=== PATIENT | male | born 1940 | race Caucasian/White ===

== ENCOUNTER → 2017-09-18 | Outpatient (CLI) | payer OTHER ==
[~2017-09-18] MED LIST: ACET-704 PO; ASPI81TA50 PO; ATOR10TA PO; CYAN10005 PO; DIFL500T PO; FOLI1TAB16 PO; LEVO125T5 PO; MULT1TAB52 PO; PANT40TA3 PO; SULF500T7 PO; TAMS0.4C97 PO; TRAZ-90 PO; WARF-78 PO; [UNRECOGNIZED DRUG - CODE] PO
== END | disposition home or self-care (01) ==
LOC: LAB 08:34
PROVIDERS: ATTEND Internal Medicine Gastroenterology
DX: Z51.81 Encounter for therapeutic drug level monitoring (principal); Z79.01 Long term (current) use of anticoagulants
CPT/HCPCS: 36415; 85610

== ENCOUNTER → 2017-09-19 | Day surgery (SDC) | payer MEDICARE, OTHER ==
[~2017-09-19] MED LIST changes: +IV RINGERS SOLUTION,LACTATED 1,000 ML IV SCH; +LIDOCAINE 1% PF 2 ML VIAL. ID PRN; +PROPOFOL 50 ML IV ONE; +PROPOFOL IV ONE
[2017-09-19 14:24] VITALS: BP 144/74
== END ==
LOC: SURG 10:44
PROVIDERS: ATTEND Internal Medicine Gastroenterology
DX: Z12.11 Encounter for screening for malignant neoplasm of colon (principal); K22.2 Esophageal obstruction; K57.30 Diverticulosis of large intestine without perforation or abscess without bleeding; K64.8 Other hemorrhoids; E03.9 Hypothyroidism, unspecified; E78.5 Hyperlipidemia, unspecified; Z85.828 Personal history of other malignant neoplasm of skin; Z87.39 Personal history of other diseases of the musculoskeletal system and connective tissue
CPT/HCPCS: 43239; G0105; J2704; J7120

== ENCOUNTER → 2018-05-27 | Outpatient (CLI) | payer OTHER ==
[2017-09-19 14:24] VITALS: BP 144/74
[~2018-05-27] MED LIST changes: -IV RINGERS SOLUTION,LACTATED 1,000 ML IV SCH; -LIDOCAINE 1% PF 2 ML VIAL. ID PRN; -PROPOFOL 50 ML IV ONE; -PROPOFOL IV ONE; +TRAZ-86 PO; -TRAZ-90 PO
--- NOTE | 2018-05-27 18:47 | RAD ---
Indication: Difficulty urinating. TECHNIQUE: Ultrasound renal and bladder COMPARISON: None FINDINGS: The right kidney measures 10.6 x 5.6 x 4.5 cm without hydronephrosis. 1.5 x 1.4 x 1.1 cm simple cyst in the right kidney. Another 1.3 x 1.4 x 1.4 similar simple cyst in the right kidney. Left kidney measures 10.7 x 6.0 x 4.5 cm without hydronephrosis. Bilateral ureteral jets are seen. Prevoid bladder volume of 278 cc. Post void bladder volume of 179 cc. IMPRESSION: 1. No hydronephrosis. 2. Significant residual post void bladder volume. Electronically signed by: Wyatt Quinones DO (05/27/2018 6:42 PM) [facility]
--- NOTE | 2018-05-27 21:54 | RAD ---
Bilateral lower extremity arterial duplex Doppler examination with spectral analysis HISTORY: Bottom of feet numb Sonographic examination of the lower extremities was performed and multiple static images were obtained. In addition color Doppler was applied as well as arterial waveform spectral analysis. FINDINGS: There is callus patients with low csaper of the arteries throughout. There is biphasic waveforms throughout the lower extremities. There is no abnormally high velocities. IMPRESSION: Significant atherosclerotic disease with calcification of the casper of the arteries and biphasic waveform. No focal stenosis. Electronically signed by: Blake Becker III, MD (05/27/2018 9:49 PM) [facility]
== END | disposition home or self-care (01) ==
LOC: US 14:11
PROVIDERS: ATTEND Family Medicine
DX: I70.203 Unspecified atherosclerosis of native arteries of extremities, bilateral legs (principal); N40.1 Benign prostatic hyperplasia with lower urinary tract symptoms; N28.1 Cyst of kidney, acquired; E03.9 Hypothyroidism, unspecified; E78.5 Hyperlipidemia, unspecified; M19.90 Unspecified osteoarthritis, unspecified site; Z85.820 Personal history of malignant melanoma of skin; Z80.3 Family history of malignant neoplasm of breast; Z80.42 Family history of malignant neoplasm of prostate; Z83.3 Family history of diabetes mellitus
CPT/HCPCS: 76770; 93925

== ENCOUNTER 2019-12-08 14:05 | Observation (INO) | payer MEDICARE, OTHER ==
[~2019-12-08] VITALS: Ht 175.3 cm; Wt 68.4 kg
[~2019-12-08 14:05] MED LIST changes: +CYAN-25 PO; -CYAN10005 PO; +MULT-445 PO; -MULT1TAB52 PO; +TRAZ-125 PO; -TRAZ-86 PO; -WARF-78 PO; +WARF5TAB2 PO
--- NOTE | 2019-12-08 14:25 | PHYS DOC ---
Past History Past Medical History: DVT, High Cholesterol, Hypothyroid Past Surgical History: Other Past Surgical History Hip replacement multiple knee surgeries Smoking: Non-smoker Alcohol Use: Rarely Drug Use: None General Adult EDM: Chief Complaint: MECHANICAL FALL HPI: HPI: Patient is a 79 year old male who presents for evaluation from Dr. Ann's office. Patient had a mechanical fall off a 3 foot stepladder. Patient fell forward and landed on his face injuring his nose. Patient is on warfarin. He states he was dazed but did not lose consciousness. Patient had some bleeding from his nose prior to arrival but that has stopped. Furthermore he has a scrap e to his left lower leg. Patient is ambulatory without difficulty. Patient is on warfarin due to prior history of DVT. Patient is lucid awake and appropriate with no no nausea or vomiting. Tetanus shot is less than 5 years old. Both wrists are tender to palpation as well Review of Systems: Review of Systems: Constitutional: Denies fever or chills Eyes: Denies change in visual acuity HENT: Denies nasal congestion or sore throat Respiratory: Denies cough or shortness of breath Cardiovascular: Denies chest pain or edema GI: Denies abdominal pain, nausea, vomiting, bloody stools or diarrhea : Denies dysuria Musculoskeletal: Denies back pain or joint pain Integument: Denies rash, abrasion left lower leg, face and nose Neurologic: mild headache,no focal weakness or sensory changes Endocrine: Denies polyuria or polydipsia Lymphatic: Denies swollen glands Psychiatric: Denies depression or anxiety Heart Score: Risk Factors: Risk Factors: DM, Current or recent (<one month) smoker, HTN, HLP, family history of CAD, obesity. Risk Scores: Score 0 - 3: 2.5% MACE over next 6 weeks - Discharge Home Score 4 - 6: 20.3% MACE over next 6 weeks - Admit for Clinical Observation Score 7 - 10: 72.7% MACE over next 6 weeks - Early Invasive Strategies Allergies: Allergies: Allergies Coded Allergies Type Severity Reaction Last Updated Verified No Known Drug Allergies 09/19/17 No Physical Exam: PE: Constitutional: Well developed, well nourished, mild acute distress, non-toxic appearance. [] HENT: Normocephalic, large abrasion to nose, small abrasion to forehead, bilateral external ears normal, no hemotympanum, no nasal septal hematoma oropharynx moist, no oral exudates, nose normal. [] Eyes: PERRL, EOMI, conjunctiva normal, no discharge. [] Neck: Normal range of motion, no tenderness, supple, no stridor. [] Cardiovascular:Heart rate regular rhythm, no murmur [] Lungs & Thorax: Bilateral breath sounds clear to auscultation [] Abdomen: Bowel sounds normal, soft, no tenderness, no masses. [] Skin: Warm, dry, no erythema, no rash. [] Back: No tenderness. [] Extremities: Mild tenderness left lower leg with abrasion present, no cyanosis, no clubbing, ROM intact, no edema, both wrists tender to palpation [] Neurologic: Alert and oriented X 3, normal motor function, normal sensory function, no focal deficits noted. [] Psychologic: Affect normal, judgement normal, mood normal. [] Current Patient Data: Labs: Laboratory Tests Test 12/08/19 14:52 White Blood Count 6.4 x10^3/uL Red Blood Count 3.82 x10^6/uL Hemoglobin 10.8 g/dL Hematocrit 33.6 % Mean Corpuscular Volume 88 fL Mean Corpuscular Hemoglobin 28 pg Mean Corpuscular Hemoglobin Concent 32 g/dL Red Cell Distribution Width 16.6 % Platelet Count 167 x10^3/uL Neutrophils (%) (Auto) 81 % Lymphocytes (%) (Auto) 12 % Monocytes (%) (Auto) 6 % Eosinophils (%) (Auto) 1 % Basophils (%) (Auto) 0 % Neutrophils # (Auto) 5.2 x10^3uL Lymphocytes # (Auto) 0.8 x10^3/uL Monocytes # (Auto) 0.4 x10^3/uL Eosinophils # (Auto) 0.0 x10^3/uL Basophils # (Auto) 0.0 x10^3/uL Prothrombin Time 66.8 SEC Prothromb Time International Ratio 6.9 Activated Partial Thromboplast Time 48 SEC Sodium Level 137 mmol/L Potassium Level 3.9 mmol/L Chloride Level 103 mmol/L Carbon Dioxide Level 24 mmol/L Anion Gap 10 Blood Urea Nitrogen 21 mg/dL Creatinine 1.0 mg/dL Estimated GFR (Cockcroft-Gault) 72.1 Glucose Level 96 mg/dL Calcium Level 9.1 mg/dL EKG: EKG: [] Radiology/Procedures: Radiology/Procedures: [address] [address] IMAGING REPORT Signed PATIENT: MEY COTTO FACCOUNT: [id number] : 1940 LOCATION: ER AGE: 79 SEX: M EXAM STATUS: REG ER ORD. PHYSICIAN: YULISSA VALDES DO REASON: fall, head injury PROCEDURE: CT HEAD AND MAXILLOFACIAL WO CT HEAD AND MAXILLOFACIAL WO, CT CERVICAL SPINE WO CONTRAST History:Fall, head injury Technique: Noncontrast CT imaging was performed of the head, maxillofacial region, and cervical spine. Multiplanar reconstruction images are submitted. Exposure: One or more of the following individualized dose reduction techniques were utilized for this examination: 1. Automated exposure control 2. Adjustment of the mA and/or kV according to patient size 3. Use of iterative reconstruction technique. Head CT Comparison: None available Findings: There is some motion degradation. No convincing acute hyperdense intracranial hemorrhage is identified. There is mild generalized supratentorial atrophy, ventricular size proportionate to the sulcal spaces. Is some frontal region scalp soft tissue swelling greater on the right. No acute calvarial abnormality is identified. Impression: 1. No acute intracranial abnormality is identified. Cervical spine CT Comparison: None Findings: There is diffuse bone demineralization. Cervical vertebral body stature is overall maintained. There is grade 1 anterior spondylolisthesis C3-4 and C7-T1. There is advanced degenerative disc disease C5-6 and C6-7 and to a somewhat lesser degree at C3-4 and C4-5. There is some calcification of the transverse ligament of C1. Atlantoaxial distance is within normal limits. There is likely central canal stenosis on the order of about 8 mm C3-4 to C6-7. There is multilevel facet and uncovertebral degenerative change. There is moderate to severe narrowing of the left C3-4 neural foramen, severe narrowing on the left at C4-5 and bilaterally at C5-6, moderate narrowing on the right at C4-5 and to lesser degree on the right at C6-7. There is atherosclerotic calcification of the carotid arteries in the neck bilaterally. Impression: 1. No acute cervical spine fracture is identified. 2. There is multilevel cervical degenerative disc disease and spondylosis. There is multilevel cervical spinal stenosis greatest C4-5 to C6-7. There is multilevel cervical neural foramina compromise due to facet and uncovertebral degenerative change. 3. There is bone demineralization. Maxillofacial CT FINDINGS: There are no air-fluid levels of the paranasal sinuses. There is mild left maxillary sinus mucosal thickening and probable very small mucous retention cyst. There are minimally displaced nasal bone fractures bilaterally. There is deviation of the nasal septum to the left. IMPRESSION: 1.There are bilateral nasal bone fractures. Electronically signed by: John Roman MD (12/08/2019 3:11 PM) [id number] DICTATED AND SIGNED BY: JOHN ROMAN MD DATE: 12/08/191510 CC: BRANDY ANN MD; YULISSA VALDES DO ~ [] Impressions: [place] [address] IMAGING REPORT Signed PATIENT: MEY COTTO FACCOUNT: [id number] : 1940 LOCATION: ER AGE: 79 SEX: M EXAM STATUS: REG ER ORD. PHYSICIAN: YULISSA VALDES DO REASON: pain, fall, injury PROCEDURE: ANKLE BILAT 3V ANKLE BILAT 3V History: Reason: pain, fall, injury / Spl. Instructions: / History: Technique: 3 views bilateral ankles. Comparison: None. Findings: Right ankle: Advanced right ankle degenerative changes with remodeling of the talus and distal tibia. Well-corticated ossification inferior to the medial malleolus, likely related to prior trauma or degenerative changes. Extensive vascular calcifications. No definite fracture. Plantar calcaneal spur. Left ankle: Normal alignment. Symmetric ankle mortise. No fracture. Mild ankle degenerative changes. Extensive vascular calcination's. Plantar calcaneal spur. Impression: 1. No acute osseous abnormality. 2. Advanced right ankle DJD. Electronically signed by: James Simon DO (12/08/2019 3:16 PM) [id number] DICTATED AND SIGNED BY: JAMES SIMON DO DATE: 12/08/191515 CC: BRANDY ANN MD; YULISSA VALDES DO ~ [address] [address] IMAGING REPORT Signed PATIENT: MEY COTTO FACCOUNT: [id number] : 1940 LOCATION: ER AGE: 79 SEX: M EXAM STATUS: REG ER ORD. PHYSICIAN: YULISSA VALDES DO REASON: fall, swelling PROCEDURE: WRIST BILAT 3V WRIST BILAT 3V History: Reason: fall, swelling / Spl. Instructions: / History: Technique: 3 views bilateral wrists. Comparison: None. Findings: Left wrist: Advanced left distal radial carpal degenerative changes with remodeling of the proximal carpal row and distal radius. SLAC wrist deformity with migration of the distal carpal row. Moderate first carpal metacarpal triscaphe DJD. Diffuse carpal degenerative changes. No definite fracture. Extensive vascular calcifications. Wrist soft tissue swelling. Right wrist: Advanced right distal radial carpal degenerative changes with remodeling of the proximal carpal roll and distal radius. Carpal degenerative changes throughout with SLAC wrist deformity. Moderate first carpal metacarpal triscaphe DJD. No definite fracture. Extensive vascular calcifications. Wrist soft tissue swelling. Impression: 1. No definite acute osseous abnormality. 2. 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 Electronically signed by: James Simon DO (12/08/2019 3:40 PM) [id number] DICTATED AND SIGNED BY: JAMES SIMON DO DATE: 12/08/19 154 CC: BRANDY ANN MD; YULISSA VALDES DO ~ Course & Med Decision Making: Course & Med Decision Making Pertinent Labs and Imaging studies reviewed. (See chart for details) [] Dragon Disclaimer: Dragon Disclaimer: This electronic medical record was generated, in whole or in part, using a voice recognition dictation system. 1630 Case was discussed with Dr. Ann. In light of patient's elevated INR and coagulopathy he would prefer the patient be admitted to the hospital. Patient is unsure of his warfarin dose. Patient is lucid awake and appropriate but was dazed after the fall. Patient does have a nasal bone fracture. Patient denies any obvious or known black, bloody or tarry stools. Labs were otherwise stable Departure Departure: Impression: Primary Impression: Coagulopathy Additional Impressions: Nasal bone fracture Head contusion Contusion of wrist, right Contusion of wrist, left Contusion of ankle, left Contusion of ankle, right Disposition: 09 ADMITTED INPATIENT Admitting Physician: Brandy Ann Condition: STABLE Referrals: BRANDY ANN MD (PCP) Justification of Admission: Justification of Admission: Justification of Admission Dx: N/A YULISSA VALDES DO Dec 08, 2019 14:25
[2019-12-08 15:11] LABS: BASO % 0 % (0-3); EOS % 1 % (0-3); HEMATOCRIT 33.6 % (39.0-53.0); HEMOGLOBIN 10.8 g/dL (13.0-17.5); LYMPH # 0.8 x10^3/uL (1.0-4.8); LYMPH % 12 % (24-48); MEAN CORPUSCULAR HEMOGLOBIN 28 pg (25-35); MEAN CORPUSCULAR HGB CONC 32 g/dL (31-37); MEAN CORPUSCULAR VOLUME 88 fL (79-100); MONO # 0.4 x10^3/uL (0.0-1.1); MONO % 6 % (0-9); NEUT # 5.2 x10^3uL (1.8-7.7); NEUT % 81 % (31-73); PLATELET COUNT 167 x10^3/uL (140-400); RED BLOOD COUNT 3.82 x10^6/uL (4.30-5.70); RED CELL DISTRIBUTION WIDTH 16.6 % (11.5-14.5); WHITE BLOOD COUNT 6.4 x10^3/uL (4.0-11.0)
--- NOTE | 2019-12-08 15:14 | RAD ---
CT HEAD AND MAXILLOFACIAL WO, CT CERVICAL SPINE WO CONTRAST History:Fall, head injury Technique: Noncontrast CT imaging was performed of the head, maxillofacial region, and cervical spine. Multiplanar reconstruction images are submitted. Exposure: One or more of the following individualized dose reduction techniques were utilized for this examination: 1. Automated exposure control 2. Adjustment of the mA and/or kV according to patient size 3. Use of iterative reconstruction technique. Head CT Comparison: None available Findings: There is some motion degradation. No convincing acute hyperdense intracranial hemorrhage is identified. There is mild generalized supratentorial atrophy, ventricular size proportionate to the sulcal spaces. Is some frontal region scalp soft tissue swelling greater on the right. No acute calvarial abnormality is identified. Impression: 1. No acute intracranial abnormality is identified. Cervical spine CT Comparison: None Findings: There is diffuse bone demineralization. Cervical vertebral body stature is overall maintained. There is grade 1 anterior spondylolisthesis C3-4 and C7-T1. There is advanced degenerative disc disease C5-6 and C6-7 and to a somewhat lesser degree at C3-4 and C4-5. There is some calcification of the transverse ligament of C1. Atlantoaxial distance is within normal limits. There is likely central canal stenosis on the order of about 8 mm C3-4 to C6-7. There is multilevel facet and uncovertebral degenerative change. There is moderate to severe narrowing of the left C3-4 neural foramen, severe narrowing on the left at C4-5 and bilaterally at C5-6, moderate narrowing on the right at C4-5 and to lesser degree on the right at C6-7. There is atherosclerotic calcification of the carotid arteries in the neck bilaterally. Impression: 1. No acute cervical spine fracture is identified. 2. There is multilevel cervical degenerative disc disease and spondylosis. There is multilevel cervical spinal stenosis greatest C4-5 to C6-7. There is multilevel cervical neural foramina compromise due to facet and uncovertebral degenerative change. 3. There is bone demineralization. Maxillofacial CT FINDINGS: There are no air-fluid levels of the paranasal sinuses. There is mild left maxillary sinus mucosal thickening and probable very small mucous retention cyst. There are minimally displaced nasal bone fractures bilaterally. There is deviation of the nasal septum to the left. IMPRESSION: 1.There are bilateral nasal bone fractures. Electronically signed by: Jerrod Lugo MD (12/08/2019 3:11 PM) [id number]
[2019-12-08 15:18] LABS: CALCIUM 9.1 mg/dL (8.5-10.1); GFR 72.1; POTASSIUM 3.9 mmol/L (3.5-5.1)
--- NOTE | 2019-12-08 15:20 | RAD ---
ANKLE BILAT 3V History: Reason: pain, fall, injury / Spl. Instructions: / History: Technique: 3 views bilateral ankles. Comparison: None. Findings: Right ankle: Advanced right ankle degenerative changes with remodeling of the talus and distal tibia. Well-corticated ossification inferior to the medial malleolus, likely related to prior trauma or degenerative changes. Extensive vascular calcifications. No definite fracture. Plantar calcaneal spur. Left ankle: Normal alignment. Symmetric ankle mortise. No fracture. Mild ankle degenerative changes. Extensive vascular calcination's. Plantar calcaneal spur. Impression: 1. No acute osseous abnormality. 2. Advanced right ankle DJD. Electronically signed by: James Simon DO (12/08/2019 3:16 PM) [id number]
--- NOTE | 2019-12-08 15:43 | RAD ---
WRIST BILAT 3V History: Reason: fall, swelling / Spl. Instructions: / History: Technique: 3 views bilateral wrists. Comparison: None. Findings: Left wrist: Advanced left distal radial carpal degenerative changes with remodeling of the proximal carpal row and distal radius. SLAC wrist deformity with migration of the distal carpal row. Moderate first carpal metacarpal triscaphe DJD. Diffuse carpal degenerative changes. No definite fracture. Extensive vascular calcifications. Wrist soft tissue swelling. Right wrist: Advanced right distal radial carpal degenerative changes with remodeling of the proximal carpal roll and distal radius. Carpal degenerative changes throughout with SLAC wrist deformity. Moderate first carpal metacarpal triscaphe DJD. No definite fracture. Extensive vascular calcifications. Wrist soft tissue swelling. Impression: 1. No definite acute osseous abnormality. 2. 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 Electronically signed by: James Simon DO (12/08/2019 3:40 PM) [id number]
[2019-12-08] MEDS ORDERED: ONDANSETRON PF 4 MG/2 ML VIAL. IVP PRN (16:45)
--- NOTE | 2019-12-08 19:00 | NUR ---
ADMISSION: The patient, MEY COTTO, 79 y/o, M admitted by BRANDY ANN MD, was given written information regarding hospital policies, unit procedures and contact persons. Pt arrived to room 113 via gurney, accompanied by [facility] and nursing sup. Pt here for Dx: coagulopathy, head contusion and nasal fracture, accidental fall. Pt A/Ox3, forgetful, reports feeling "foggy." Pt reports he lost his balance while standing on a 3 foot stepladder, attempting to change a light bulb and fell to the floor. Presented to PCP's office with nosebleed and bilateral wrist pain and was sent to the ED for treatment. Pt on Coumadin, found to have INR of 6.9. Pt has bruising to face as well as a skin tear to left lower leg with non-adherent dressing which is C/D/I. PMH and home meds reviewed. Vitamin K 2mg SQ x1 given per order. Coumadin on hold. Oriented pt to unit and routines and POC discussed, pt v/u. Call light within reach. Valuables were checked and logged. Left in room with patient.
[2019-12-08 19:34] VITALS: BP 168/85
[2019-12-08] MEDS ORDERED: DOCU-109 PO (20:06)
[2019-12-08] MEDS ORDERED: PHYTONADIONE 10 MG/ML AMPUL. SQ ONE (21:30)
[2019-12-08] MEDS: traZODone 100 MG TABLET. PO SCH (21:51)
[2019-12-08] MEDS: sulfaSALAzine 500 MG TABLET PO SCH (21:51)
[2019-12-08] MEDS: amLODIPine BESYLATE 10 MG TABLET PO SCH (21:52)
[2019-12-08] MEDS: TAMSULOSIN 0.4 MG CAP.ER.24H. PO SCH (21:52)
[2019-12-08] MEDS: ATORVASTATIN CALCIUM 10 MG TABLET. PO SCH (21:52)
[2019-12-08] MEDS: ACETAMINOPHEN/CODEINE 300/30MG TABLET PO PRN (21:53)
[2019-12-08 23:46] VITALS: BP 129/71
[2019-12-09] MEDS: LEVOTHYROXINE 125 MCG TABLET PO SCH (05:28)
[2019-12-09] MEDS: ACETAMINOPHEN/CODEINE 300/30MG TABLET PO PRN ×2 (05:38→20:16)
[2019-12-09 05:53] LABS: BASO % 1 % (0-3); EOS # 0.1 x10^3/uL (0.0-0.7); EOS % 2 % (0-3); HEMATOCRIT 33.2 % (39.0-53.0); HEMOGLOBIN 10.7 g/dL (13.0-17.5); LYMPH # 0.8 x10^3/uL (1.0-4.8); LYMPH % 17 % (24-48); MEAN CORPUSCULAR HEMOGLOBIN 29 pg (25-35); MEAN CORPUSCULAR HGB CONC 32 g/dL (31-37); MEAN CORPUSCULAR VOLUME 88 fL (79-100); MONO # 0.5 x10^3/uL (0.0-1.1); MONO % 11 % (0-9); NEUT # 3.1 x10^3uL (1.8-7.7); NEUT % 70 % (31-73); PLATELET COUNT 158 x10^3/uL (140-400); RED BLOOD COUNT 3.76 x10^6/uL (4.30-5.70); RED CELL DISTRIBUTION WIDTH 16.6 % (11.5-14.5); WHITE BLOOD COUNT 4.5 x10^3/uL (4.0-11.0)
[2019-12-09 05:59] VITALS: BP 131/72
[2019-12-09 06:02] LABS: CALCIUM 8.7 mg/dL (8.5-10.1); GFR 72.1; POTASSIUM 3.8 mmol/L (3.5-5.1)
[2019-12-09] MEDS ORDERED: PHYTONADIONE 10 MG/ML AMPUL. SQ ONE (07:30)
[2019-12-09] MEDS: sulfaSALAzine 500 MG TABLET PO SCH ×2 (08:29→20:16)
[2019-12-09] MEDS: amLODIPine BESYLATE 10 MG TABLET PO SCH (08:29)
[2019-12-09] MEDS: MULTIVITAMIN with MINERAL TABLET. PO SCH (08:29)
[2019-12-09] MEDS: TAMSULOSIN 0.4 MG CAP.ER.24H. PO SCH ×2 (08:29→20:15)
[2019-12-09] MEDS: CALCIUM POLYCARBOPHIL 625 MG TABLET PO SCH (08:29)
[2019-12-09] MEDS: PANTOPRAZOLE 40 MG TABLET. PO SCH (08:30)
[2019-12-09] MEDS ORDERED: SULF500T36 PO (08:35)
[2019-12-09 11:00] VITALS: BP 132/76
--- NOTE | 2019-12-09 11:25 | RAD ---
EXAM: CHEST PA LATERAL INDICATION: Reason: sob / Spl. Instructions: / History: . TECHNIQUE: PA and lateral views COMPARISON: None FINDINGS: The heart size is normal. The great vessels appear unremarkable. There is no hilar or mediastinal mass. The lungs show small infiltrate in the peripheral left lung base. This is not well seen on the lateral view but suspected to be in the lower lobe.. There is no pleural effusion or pneumothorax. There are no significant osseous abnormalities. IMPRESSION: Possible early small left pulmonary infiltrate. Electronically signed by: Martita Mas MD (12/09/2019 11:22 AM) [id number]
--- NOTE | 2019-12-09 12:00 | HP ---
ADMIT DATE: 12/08/2019 HISTORY OF PRESENT ILLNESS: A 79-year-old male, changing a light bulb on a 3-step ladder. The ladder collapsed. He fell flat on his face, breaking his nose and injuring his head and abrasions to multiple areas on his leg. The importance of this is the fact that the patient is on warfarin and his INR was 6.9. His PT was 66.8. As a result of this and the head contusion and because he is 79 years old, the patient was admitted for further evaluation, monitoring obviously from the head contusion with a severe problem with his warfarin levels with INR of 6. The patient apparently claims he did not lose consciousness, but does seem a little bit hazy to me and the like with the contusion and fracture of his nose, the patient had some bleeding from his nose prior to arrival, but they were able to stop that. He also scraped his left knee and he has been on warfarin for history of DVT. Tetanus shot was up-to-date and both wrists were tender and so forth. The patient was admitted for observation. The patient's chest x-ray was taken, but pending. The patient has advanced degenerative arthritis of the right ankle. The patient's wrist x-ray demonstrates advanced bilateral wrist degenerative arthritis with SLAC wrist deformities. The cervical spine CT demonstrated multi-cervical degenerative disk disease and spondylosis. There is multiple level cervical spine stenosis and bone demineralizations. The patient's CT of the head showed bilateral nasal bone fractures and minimally displaced nasal fractures. There was no obvious intracranial abnormality noted and no obvious bleeding. There was some frontal region scalp soft tissue swelling of course from the fall. The patient was admitted for observation. PAST MEDICAL HISTORY: He is on Coumadin, DVT x 2; hypercholesterolemia; small bowel resection; gastroesophageal reflux; BPH; rheumatoid arthritis; joint replacement, total knee, left partial hip; hypothyroidism; quit smoking 45 years ago; history of skin cancer. IMMUNIZATIONS: Influenza vaccination up-to-date. ALLERGIES: No known allergies. FAMILY HISTORY: Noncontributory to this 79-year-old gentleman. MEDICATIONS: The patient's home meds include that of sulfasalazine; tamsulosin; warfarin 5 mg, stopped of course; Lipitor 10; Diflunisal that was stopped; Tylenol; trazodone; docusate sodium; methyl cellulose; Protonix; levothyroxine; B12; folic acid; and multivitamins. SOCIAL HISTORY: The patient stopped smoking 45 years ago. Denies any significant alcohol drink, no drugs. Full code. REVIEW OF SYSTEMS: Outside of pain to his face, nose, primarily in his left lower leg, the patient denies chest pain, shortness of breath. Denies abdominal pain per se, although he has had weight loss. Neurologically baseline, seems to be tracking very well, eyes were PERRL and speech was fluent and spontaneous. PHYSICAL EXAMINATION: GENERAL: Pleasant white male with contusions to his face, traumatic abrasion over the right orbital area with some swelling to the skin. The nose is somewhat downturned and contused. NECK: Stiff. LUNGS: Diminished, but clear. CARDIOVASCULAR: Regular sinus rhythm. ABDOMEN: Soft, nontender. EXTREMITIES: Without clubbing, cyanosis. Bruise and abrasion to the left lower leg, bandaged. Pulses noted distally. NEUROLOGIC: Alert and oriented. Speech is fluent, spontaneous, and appropriate. LABORATORY DATA: Big concern of course on his labs. INR of 6.9, hemoglobin and hematocrit 10.8 and 33.6, platelets 167. Chemistries: 142, 3.8, BUN and creatinine of 17 and 1. We will also get a urine on him just in case he had any bleeding in his urine and make sure that there has been no hematuria there, but we will monitor that. PLAN: He was given subcutaneous vitamin K 2 mL and make further evaluation on him as indicated per those results. The patient otherwise ____ and we will make further evaluation on him as indicated. PT, OT organized to see if he is stable enough to walk. We will hold off on the warfarin for now and make further evaluation on the necessity of that medication as we progress. BRANDY ANN MD DR: MARISSA/mackenzie JOB#: [id number] / [id number]
--- NOTE | 2019-12-09 15:13 | EKG ---
[address] [address] Test Date: 2019-12-09 Test Time: 05:09:41 Pat Name: MEY COTTO Department: Room: 113 A Gender: M Cane Weigher: : 1940 Requested By: BRANDY ANN Order Number: [id number] Reading MD: Measurements Intervals [place] Rate: 57 P: 39 WI: 180 QRS: -10 QRSD: 98 T: 8 QT: 436 QTc: 427 Interpretive Statements SINUS RHYTHM LEFTWARD AXIS LOW LIMB LEAD VOLTAGE NO SPECIFIC ECG ABNORMALITIES RI6.01 No previous ECG available for comparison
[2019-12-09 15:50] VITALS: BP 156/74
[2019-12-09] MEDS ORDERED: POLYETHYLENE GLYCOL 3350 17 GM PACKET. PO PRN (18:30)
[2019-12-09 19:22] VITALS: BP 160/75
[2019-12-09] MEDS: DOCUSATE SODIUM 100 MG CAPSULE PO SCH (20:15)
[2019-12-09] MEDS: ATORVASTATIN CALCIUM 10 MG TABLET. PO SCH (20:15)
[2019-12-09] MEDS: traZODone 100 MG TABLET. PO SCH (20:15)
[2019-12-09 22:25] VITALS: BP 149/69
[2019-12-10] MEDS: ACETAMINOPHEN/CODEINE 300/30MG TABLET PO PRN ×3 (02:19→16:19)
[2019-12-10] MEDS: LEVOTHYROXINE 125 MCG TABLET PO SCH (05:16)
[2019-12-10 05:42] LABS: BACTERIA,URINE 0 /HPF (0-FEW); BILIRUBIN,URINE NEG (NEG); CLARITY,URINE CLEAR; COLOR,URINE YELLOW; GLUCOSE,URINE NEG (NEG); NITRITE,URINE NEG (NEG); RBC,URINE 0 /HPF (0-2); SQUAMOUS EPITHELIAL CELL,UR OCC /LPF; UROBILINOGEN,URINE 0.2 mg/dL (0.2 mg/dL); WBC,URINE OCC /HPF (0-4)
[2019-12-10 06:14] VITALS: BP 129/67
[2019-12-10 06:41] LABS: BASO % 0 % (0-3); EOS # 0.1 x10^3/uL (0.0-0.7); EOS % 1 % (0-3); HEMOGLOBIN 10.3 g/dL (13.0-17.5); LYMPH # 0.9 x10^3/uL (1.0-4.8); LYMPH % 16 % (24-48); MEAN CORPUSCULAR HEMOGLOBIN 29 pg (25-35); MEAN CORPUSCULAR HGB CONC 32 g/dL (31-37); MEAN CORPUSCULAR VOLUME 89 fL (79-100); MONO # 0.6 x10^3/uL (0.0-1.1); MONO % 11 % (0-9); NEUT % 72 % (31-73); PLATELET COUNT 161 x10^3/uL (140-400); RED BLOOD COUNT 3.61 x10^6/uL (4.30-5.70); RED CELL DISTRIBUTION WIDTH 17.1 % (11.5-14.5); WHITE BLOOD COUNT 5.6 x10^3/uL (4.0-11.0)
[2019-12-10 06:59] LABS: ALBUMIN 2.8 g/dL (3.4-5.0); ALBUMIN/GLOBULIN RATIO 0.9 (1.0-1.7); CALCIUM 8.3 mg/dL (8.5-10.1); GFR 72.1; POTASSIUM 3.8 mmol/L (3.5-5.1); TOTAL BILIRUBIN 0.7 mg/dL (0.2-1.0)
[2019-12-10] MEDS: CALCIUM POLYCARBOPHIL 625 MG TABLET PO SCH (08:47)
[2019-12-10] MEDS: DOCUSATE SODIUM 100 MG CAPSULE PO SCH (08:47)
[2019-12-10] MEDS: amLODIPine BESYLATE 10 MG TABLET PO SCH (08:47)
[2019-12-10] MEDS: PANTOPRAZOLE 40 MG TABLET. PO SCH (08:47)
[2019-12-10] MEDS: MULTIVITAMIN with MINERAL TABLET. PO SCH (08:48)
[2019-12-10] MEDS: TAMSULOSIN 0.4 MG CAP.ER.24H. PO SCH (08:48)
[2019-12-10] MEDS: sulfaSALAzine 500 MG TABLET PO SCH (08:50)
[2019-12-10] MEDS ORDERED: MAGNESIUM CITRATE 296 ML SOLUTION. PO ONE (09:00)
--- NOTE | 2019-12-10 09:17 | DS ---
DATE OF DISCHARGE: HOSPITAL SUMMARY: The patient had fallen off a 3-step ladder. He had crushed his nose as well as abrasion to his forehead. His INR was 6. As a result of this and his age of 79, the patient was brought into the hospital for observation. He was given shots of vitamin K to help bring down that INR, which was brought down from 6.9 yesterday or the day before to 5.5-1.7. His labs look basically good except for low albumin of 2.8, BUN and creatinine of 17 and 1. Urine was unremarkable with no blood and her chest x-ray showed possible infiltrate in the left lower lobe. However, the patient does not seem to have any fever or chills. His lungs were diminished, but basically clear throughout. We will continue to monitor that. His EKG was sinus. IMPRESSION: Fall off a 3 step ladder with breaking of his nose, mild concussion, contusion to the forehead over the right periorbital area, abrasion to the left lower leg. Continue to monitor. He still is very weak. PT, OT saw him here and he needed to continue with physical and occupational therapy as an outpatient. DIAGNOSIS: Severe protein malnutrition. BRANDY ANN MD DR: MARISSA/mackenzie JOB#: [id number] / [id number]
[2019-12-10 10:39] VITALS: BP 156/68
[2019-12-10] MEDS ORDERED: AMLO10TA8 PO (11:36)
[2019-12-10] MEDS ORDERED: POLY17PO5 PO (11:36)
[2019-12-10 14:52] VITALS: BP 137/71
[2019-12-10] MEDS ORDERED: SODIUM PHOSPHATES 19/7GM 133 ML ENEMA. PR ONE (16:15)
--- NOTE | 2019-12-10 17:53 | NUR ---
NURSING NOTE DISCHARGE PT DISCHARGED HOME VIA AMBULATION ACCOMPANIED BY SELF PICKED UP BY . PT GIVEN WRITTEN AND VERBAL DISCHARGE INSTRUCTIONS. PT EDUCATED ABOUT STOPPING WARFARIN AND FALL PREVENTION. NO SCRIPTS GIVEN. PT EDUCATED ABOUT HAVING DAILY BOWEL MOVEMENT AND MONITORING. NO COMPLICATIONS. EVELYNE STEWARD.
== END 2019-12-10 18:01 | disposition home or self-care (01) ==
LOC: ER 14:05 → 1 SOUTH 16:45 → INTOOBSV 16:45
PROVIDERS: ADMIT Family Medicine; ATTEND Family Medicine
DX: S02.2XXA Fracture of nasal bones, initial encounter for closed fracture (principal); S00.83XA Contusion of other part of head, initial encounter; S60.212A Contusion of left wrist, initial encounter; S60.211A Contusion of right wrist, initial encounter; S90.02XA Contusion of left ankle, initial encounter; S90.01XA Contusion of right ankle, initial encounter; D68.9 Coagulation defect, unspecified; E43 Unspecified severe protein-calorie malnutrition; E03.9 Hypothyroidism, unspecified; E78.00 Pure hypercholesterolemia, unspecified; N40.0 Benign prostatic hyperplasia without lower urinary tract symptoms; K21.9 Gastro-esophageal reflux disease without esophagitis; M06.9 Rheumatoid arthritis, unspecified; Z96.652 Presence of left artificial knee joint; Z96.642 Presence of left artificial hip joint; Z87.891 Personal history of nicotine dependence; Z85.828 Personal history of other malignant neoplasm of skin; Z86.718 Personal history of other venous thrombosis and embolism; Z79.01 Long term (current) use of anticoagulants; Z68.22 Body mass index [BMI] 22.0-22.9, adult; W11.XXXA Fall on and from ladder, initial encounter; Y93.89 Activity, other specified; Y92.89 Other specified places as the place of occurrence of the external cause; Y99.8 Other external cause status
CPT/HCPCS: 36415; 70450; 70486; 71046; 72125; 73110; 73610; 80048; 80053; 81001; 85025; 85610; 85730; 93005; 96372; 97166; 97530; 99285; G0378; J3430; G0379